=== PATIENT | female | born 1940 | race Caucasian/White ===

== ENCOUNTER 2020-05-03 12:07 | Inpatient (IN) | payer MEDICARE ==
[~2020-05-03] VITALS: Ht 152.4 cm; Wt 59.9 kg
[2020-05-03] MEDS ORDERED: SODIUM CHLORIDE 0.9% 1,000 ML IV ONE (12:30)
[2020-05-03] MEDS ORDERED: MORPHINE SULFATE 2 MG/ML CPJ (NOT FOR IM USE) IV ONE (12:30)
[2020-05-03 13:13] LABS: HEMATOCRIT. 24.2 % (36.0-48.0); HEMOGLOBIN. 8.2 g/dL (12.0-16.0); MEAN CORPUSCULAR VOLUME 82.5 fL (81.0-99.0); MEAN PLATELET VOLUME 9.2 fl (7.4-10.4); PLATELET 230 x1000/uL (130-400); RED BLOOD CELL COUNT 2.94 mill/uL (4.2-5.4); RED CELL DISTRIBUTION WIDTH 14.6 % (11.6-14.6)
[2020-05-03 13:35] LABS: CLARITY URINE CLOUDY (CLEAR); KETONES URINE 2+ (NEGATIVE); LEUKOCYTE ESTERASE URINE 3+ (NEGATIVE); NITRITE URINE POSITIVE (NEGATIVE); OCCULT BLOOD URINE 3+ (NEGATIVE); PROTEIN URINE 3+ (NEGATIVE); SPECIFIC GRAVITY URINE 1.039 (1.005-1.030)
[2020-05-03 13:37] LABS: PLATELET ESTIMATE NORMAL
[2020-05-03 13:37] LABS: COLOR URINE BLOODY (YELLOW)
[2020-05-03 13:53] LABS: CHLORIDE 112 mEq/L (98-107)
[2020-05-03] MEDS ORDERED: CEFTRIAXONE 1 G PREMIX 50 ML IV ONE (14:00)
[2020-05-03 15:12] LABS: PROTHROMBIN TIME 11.2 sec (9.6-11.0)
[2020-05-03] MEDS ORDERED: HYDRALAZINE 20MG/ML VIAL IV PRN (17:15)
[2020-05-03] MEDS ORDERED: CLONIDINE 0.1MG TABLET PO PRN (17:15)
[2020-05-03] MEDS ORDERED: ONDANSETRON HCL 4MG/2ML INJ IV PRN (17:15)
[2020-05-03] MEDS ORDERED: POLYETHYLENE GLYCOL 3350 (17GM) 1 DOSE PACK PO PRN (17:15)
[2020-05-03] MEDS ORDERED: TRAZODONE HCL 50MG TABLET PO PRN (17:15)
[2020-05-03] MEDS ORDERED: BISACODYL 10MG SUPP PR PRN (17:15)
[2020-05-03] MEDS ORDERED: ACETAMINOPHEN 325MG TABLET PO PRN (17:15)
[2020-05-03] MEDS: AMLODIPINE 10MG TABLET PO SCH (17:47)
[2020-05-03 20:00] VITALS: BP 142/60
[2020-05-03] MEDS ORDERED: SENNOSIDES/DOCUSATE SOD 8.6/50MG TABLET PO PRN (21:00)
[2020-05-03 21:23] LABS: ETHANOL BLOOD < 10 mg/dL
[2020-05-03 21:26] LABS: LDL CHOLESTEROL 85 mg/dL (5-100)
[2020-05-03] MEDS ORDERED: IOHEXOL-300 100 ML BOTTLE ONE (21:27)
[2020-05-03 21:28] LABS: HDL CHOLESTEROL 47 mg/dL (40-59)
[2020-05-03] MEDS ORDERED: GABA-532 MT (23:54)
[2020-05-03] MEDS ORDERED: CLOP-31 PO (23:54)
[2020-05-03] MEDS ORDERED: DIPH25CA83 PO (23:54)
[2020-05-03] MEDS ORDERED: SERT20OR6 PO (23:54)
[2020-05-03] MEDS ORDERED: ASPI-1160 PO (23:54)
[2020-05-04] VITALS (10 sets, daily range): BP systolic 106–130; BP diastolic 44–65
[2020-05-04 01:23] LABS: HEMATOCRIT 21.1 % (36.0-48.0); HEMOGLOBIN 7.1 g/dL (12.0-16.0); MEAN CORPUSCULAR HEMOGLOBIN 27.3 pg (28.0-32.0); MEAN CORPUSCULAR VOLUME 81.5 fL (81.0-99.0); PLATELET 210 x1000/uL (130-400); RED BLOOD CELL COUNT 2.59 mill/uL (4.2-5.4); RED CELL DISTRIBUTION WIDTH 15.1 % (11.6-14.6)
[2020-05-04] MEDS: DOCUSATE SODIUM 100MG CAPSULE PO PRN (03:07)
[2020-05-04 07:31] LABS: BASOPHILS % 0.6 % (0.0-2.0); HEMATOCRIT. 21.7 % (36.0-48.0); HEMOGLOBIN. 7.1 g/dL (12.0-16.0); LYMPHOCYTES % 8.1 % (20.0-50.0); MEAN CORPUSCULAR HEMOGLOBIN 26.8 pg (28.0-32.0); MEAN PLATELET VOLUME 9.4 fl (7.4-10.4); MONOCYTES % 7.4 % (2.0-8.0); NEUTROPHILS % 82.9 % (40.0-76.0); PLATELET 207 x1000/uL (130-400); RED BLOOD CELL COUNT 2.65 mill/uL (4.2-5.4); RED CELL DISTRIBUTION WIDTH 14.9 % (11.6-14.6)
[2020-05-04 07:54] LABS: CHLORIDE 113 mEq/L (98-107)
[2020-05-04] MEDS: AMLODIPINE 10MG TABLET PO SCH (09:15)
[2020-05-04 13:30] LABS: HEMATOCRIT 21.1 % (36.0-48.0); MEAN CORPUSCULAR HEMOGLOBIN 26.6 pg (28.0-32.0); MEAN CORPUSCULAR VOLUME 82.3 fL (81.0-99.0); PLATELET 208 x1000/uL (130-400); RED BLOOD CELL COUNT 2.56 mill/uL (4.2-5.4); RED CELL DISTRIBUTION WIDTH 15.2 % (11.6-14.6)
[2020-05-04 13:43] LABS: HEMOGLOBIN 6.8 g/dL (12.0-16.0)
[2020-05-04] MEDS: SODIUM CHLORIDE 0.45% 1,000 ML IV SCH (14:43)
[2020-05-04 16:05] LABS: MEAN CORPUSCULAR HEMOGLOBIN 26.8 pg (28.0-32.0); MEAN CORPUSCULAR VOLUME 82.2 fL (81.0-99.0); PLATELET 194 x1000/uL (130-400); RED CELL DISTRIBUTION WIDTH 15.1 % (11.6-14.6)
[2020-05-04 16:15] LABS: HEMATOCRIT 19.7 % (36.0-48.0); HEMOGLOBIN 6.4 g/dL (12.0-16.0)
[2020-05-04 16:27] LABS: D-DIMER 15.23 mg/L FEU (<0.50)
[2020-05-05] VITALS (10 sets, daily range): BP systolic 100–129; BP diastolic 42–59
[2020-05-05] MEDS: SODIUM CHLORIDE 0.45% 1,000 ML IV SCH ×4 (00:30→22:56)
[2020-05-05 07:50] LABS: BASOPHILS % 0.7 % (0.0-2.0); EOSINOPHILS % 2.5 % (0.0-5.0); HEMATOCRIT. 29.6 % (36.0-48.0); HEMOGLOBIN. 9.8 g/dL (12.0-16.0); LYMPHOCYTES % 12.3 % (20.0-50.0); MEAN CORPUSCULAR HEMOGLOBIN 27.7 pg (28.0-32.0); MEAN CORPUSCULAR VOLUME 83.8 fL (81.0-99.0); MEAN PLATELET VOLUME 9.9 fl (7.4-10.4); MONOCYTES % 6.9 % (2.0-8.0); NEUTROPHILS % 77.6 % (40.0-76.0); PLATELET 173 x1000/uL (130-400); RED BLOOD CELL COUNT 3.53 mill/uL (4.2-5.4); RED CELL DISTRIBUTION WIDTH 15.1 % (11.6-14.6)
[2020-05-05 07:58] LABS: CHLORIDE 112 mEq/L (98-107)
[2020-05-05 08:20] LABS: FOLIC ACID (FOLATE) SERUM 9.1 ng/mL (>5.38)
[2020-05-05 08:22] LABS: AMYLASE 89 IU/L (25-115); TOTAL IRON BINDING CAPACITY 261 ug/dL (250-450)
[2020-05-05 08:24] LABS: LDL CHOLESTEROL 97 mg/dL (5-100); PHOSPHORUS 2.1 mg/dL (2.5-4.9)
[2020-05-05 08:26] LABS: HDL CHOLESTEROL 51 mg/dL (40-59)
[2020-05-05] MEDS: AMLODIPINE 10MG TABLET PO SCH ×2 (08:49→09:00)
[2020-05-05] MEDS: DOCUSATE SODIUM 100MG CAPSULE PO PRN (12:46)
[2020-05-05] MEDS: FERROUS SULFATE 325MG TABLET PO SCH ×2 (12:46→17:12)
[2020-05-05] MEDS ORDERED: POTASSIUM CHLORIDE 20MEQ/PACKET PO NR (13:15)
[2020-05-05 18:35] LABS: BASOPHILS % 0.6 % (0.0-2.0); EOSINOPHILS % 4.2 % (0.0-5.0); HEMATOCRIT. 30.2 % (36.0-48.0); HEMOGLOBIN. 9.7 g/dL (12.0-16.0); LYMPHOCYTES % 12.8 % (20.0-50.0); MEAN CORPUSCULAR HEMOGLOBIN 27.1 pg (28.0-32.0); MEAN CORPUSCULAR VOLUME 84.1 fL (81.0-99.0); MONOCYTES % 6.2 % (2.0-8.0); NEUTROPHILS % 76.2 % (40.0-76.0); PLATELET 170 x1000/uL (130-400); RED BLOOD CELL COUNT 3.59 mill/uL (4.2-5.4); RED CELL DISTRIBUTION WIDTH 14.7 % (11.6-14.6)
[2020-05-06] VITALS: BP 114/66
[2020-05-06 04:00] VITALS: BP 122/58
[2020-05-06] MEDS: SODIUM CHLORIDE 0.45% 1,000 ML IV SCH (04:23)
[2020-05-06] MEDS: FERROUS SULFATE 325MG TABLET PO SCH ×2 (06:20→12:51)
[2020-05-06 06:43] LABS: CHLORIDE 111 mEq/L (98-107)
[2020-05-06 06:45] LABS: BASOPHILS % 0.7 % (0.0-2.0); EOSINOPHILS % 4.8 % (0.0-5.0); HEMATOCRIT. 28.3 % (36.0-48.0); HEMOGLOBIN. 9.3 g/dL (12.0-16.0); MEAN CORPUSCULAR VOLUME 84.8 fL (81.0-99.0); MEAN PLATELET VOLUME 9.7 fl (7.4-10.4); MONOCYTES % 6.4 % (2.0-8.0); NEUTROPHILS % 77.1 % (40.0-76.0); PLATELET 164 x1000/uL (130-400); RED BLOOD CELL COUNT 3.33 mill/uL (4.2-5.4); RED CELL DISTRIBUTION WIDTH 14.8 % (11.6-14.6)
[2020-05-06 06:46] LABS: AMYLASE 56 IU/L (25-115)
[2020-05-06 08:00] VITALS: BP 131/59
[2020-05-06] MEDS ORDERED: AMLODIPINE 5MG TABLET PO SCH (09:00)
[2020-05-06] MEDS ORDERED: FERR325T23 PO (10:43)
[2020-05-06] MEDS ORDERED: DOCU-150 PO (10:43)
[2020-05-06] MEDS ORDERED: AMLO5TAB88 PO ×2 (10:43)
[2020-05-06 11:56] VITALS: BP 104/69
[2020-05-06 12:11] VITALS: BP 104/69
== END 2020-05-06 14:46 | disposition home or self-care (01) | DRG 919 ==
LOC: ER 12:43 → EDBEDREQ 14:57 → EDBEDREQTM 14:57 → 5WST 17:07 → EDBEDREQ 17:12 → EDBEDREQTM 17:15 → ENRESERV 17:38
PROVIDERS: ADMIT Family Medicine Adult Medicine; ATTEND Family Medicine Adult Medicine
PROC: 30233N1 Transfusion of Nonautologous Red Blood Cells into Peripheral Vein, Percutaneous Approach (ICD-10-PCS; principal; 2020-05-04)
DX: L76.32 Postprocedural hematoma of skin and subcutaneous tissue following other procedure (principal); K85.90 Acute pancreatitis without necrosis or infection, unspecified; E43 Unspecified severe protein-calorie malnutrition; D62 Acute posthemorrhagic anemia; E83.51 Hypocalcemia; E87.8 Other disorders of electrolyte and fluid balance, not elsewhere classified; E88.09 Other disorders of plasma-protein metabolism, not elsewhere classified; R31.9 Hematuria, unspecified; I16.0 Hypertensive urgency; I73.9 Peripheral vascular disease, unspecified; I11.9 Hypertensive heart disease without heart failure; Z96.652 Presence of left artificial knee joint; R74.01 Elevation of levels of liver transaminase levels; I95.9 Hypotension, unspecified; Y84.8 Other medical procedures as the cause of abnormal reaction of the patient, or of later complication, without mention of misadventure at the time of the procedure; Y92.89 Other specified places as the place of occurrence of the external cause
CPT/HCPCS: 36415; 71045; 75635; 76700; 76857; 80053; 80061; 80320; 81003; 82150; 82607; 82728; 82746; 83540; 83550; 83605; 83735; 84100; 84484; 85025; 85027; 85044; 85379; 85384; 86850; 86900; 86920; 93005; 93306; 97162; 99291; J0696; J2270; J7030; J7040; P9016; Q9967; G0480